=== PATIENT | female | born 1980 | race Caucasian/White ===

== ENCOUNTER 2017-05-06 14:09 | Emergency (ER) | payer MEDICAID ==
[~2017-05-06] VITALS: Ht 162.6 cm; Wt 92.3 kg
[~2017-05-06 14:09] MED LIST: LURA40 PO
[2017-05-06] MEDS ORDERED: TOPI100T37 PO (14:29)
[2017-05-06] MEDS ORDERED: FLUO-191 PO (14:29)
[2017-05-06] MEDS ORDERED: TOPI25 PO (14:29)
[2017-05-06] MEDS ORDERED: OLAN7.5T2 PO (14:29)
[2017-05-06 17:07] LABS: APPEARANCE,URINE CLOUDY (CLEAR); GLUCOSE, URINE (UA) NEGATIVE (NEGATIVE); KETONES,URINE NEGATIVE (NEGATIVE); LEUKOCYTE ESTERASE ,URINE NEGATIVE (NEGATIVE); OCCULT BLOOD,URINE NEGATIVE (NEGATIVE); PH,URINE 5.5 (5.0-8.0); PROTEIN,URINE NEGATIVE (NEGATIVE)
[2017-05-06 17:08] LABS: ADD UA MICROSCOPIC NO
[2017-05-06 18:19] VITALS: BP 124/77
[2017-05-09 00:59] LABS: GC DNA N.A. AMPLIFY Negative (Negative)
== END 2017-05-06 19:18 | disposition home or self-care (01) ==
LOC: EMS 14:15
DX: N76.0 Acute vaginitis (principal); N89.8 Other specified noninflammatory disorders of vagina; F15.90 Other stimulant use, unspecified, uncomplicated; F17.210 Nicotine dependence, cigarettes, uncomplicated
CPT/HCPCS: 87210; 87491; 87591; 99284